=== PATIENT | female | born 2005 | race Caucasian/White ===

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

== ENCOUNTER 2024-11-25 13:06 | Emergency (ER) | payer OTHER, MEDICAID, SELFPAY ==
[2024-11-25 13:15] VITALS: BP 134/64; PULSE 80; RESP 18; TEMP 36.7; O2SAT 100
--- NOTE | 2024-11-25 13:20 | ED.FEMALEGU ---
HPI - Female Genitourinary General Chief complaint: Urogenital-Female Stated complaint: Vaginal Issue History of Present Illness HPI Narrative: patient is a 19-year-old female, without significant past medical history, 1 month status post elective , presents to Express Care with vaginal itching for the past 2 days. She states that she has had a creamy white discharge that is scant amount and had vaginal itching externally. She states when she urinates the vaginal area itches and feels uncomfortable but she has no dysuria, frequency, urgency or odor. She has no pelvic pain. She did have lochial bleeding that ended 2 weeks ago. She has no new sexual partners or concern for STI. She used a 1 day [id number] Monistat treatment yesterday without much relief, prompting her visit. She denies any additional associated symptoms modifying factors. Related Data Home Medications ?Medication ?Instructions ?Recorded ?Confirmed ?Last Taken ?Type norgestimate 0.25 mg-ethinyl See Rx Instructions .Route .COMPLEX 12/27/22 12/27/22 Unknown History estradiol 0.035 mg tablet (Sprintec (28)) iron 11/25/24 Unknown History Allergies Allergy/AdvReac Type Severity Reaction Status Date / Time amoxicillin Allergy Intermediate Rash Verified 11/25/24 13:19 Penicillins Allergy Intermediate Rash Verified 11/25/24 13:19 Review of Systems Genitourinary: Comments: refer to [facility] Past Medical History Medical History No pertinent past medical history Exam Const: General: healthy appearing Nutritional Appearance: well nourished Orientation/consciousness: patient oriented x3 Limitations: no limitations HENMT: Head: normal to inspection Ears: external ears normal Face/Nose/Sinus: Normal external nose present Face and sinus: normal facial exam Mouth: Yes Normal oral and palatal mucosa present Teeth and gingiva: dentition normal Eyes: Conjunctivae: conjunctivae normal Pupils: Equal, round and reactive pupils present EOM: EOMs intact bilaterally Direct Ophthalmoscopy: no photophobia Neck: Neck: normal visual inspection Resp: Effort & Inspection: normal respiratory effort Auscultation: clear to auscultation bilaterally Cardio: Rate: regular rate Rhythm: regular rhythm GI: GI Palp: Yes Soft to palpation Other: Nontender, nondistended, no HSM, no CVA tenderness to percussion Skin: General skin exam: normal color Rashes: no rashes Wounds: no wounds Neuro: General: patient oriented x3, moves all extremities, no meningeal signs, no focal motor deficits and CN's II-XI intact bilaterally Course Course Emergency Course: GC chlamydia Trichomonas are sent on patient's urine. She has low concern for STI. HPI consistent with vaginitis, likely candidal. Will treat with Diflucan, cultures pending. She plans to follow-up with her folding machine tender next week if her symptoms not resolving, sooner if symptoms worsen. She has no pelvic pain or dysuria. will defer pelvic exam at this time patient's request. Level of Care: Express Care Visit ([id number]) Vital Signs Vital signs: Vital Signs Temperature 36.7 C 11/25/24 13:15 Pulse Rate 80 11/25/24 13:15 Respiratory Rate 18 11/25/24 13:15 Blood Pressure 134/64 11/25/24 13:15 Pulse Oximetry 100 11/25/24 13:15 Oxygen Delivery Room Air 11/25/24 13:15 Temperature 36.7 C 11/25/24 13:15 Pulse Rate 80 11/25/24 13:15 Respiratory Rate 18 11/25/24 13:15 Blood Pressure 134/64 11/25/24 13:15 Pulse Oximetry 100 11/25/24 13:15 Oxygen Delivery Room Air 11/25/24 13:15 MDM - Female Genitourinary MDM Narrative Medical decision making narrative: Diflucan 1 tablet Q 72 hours x2 doses, OBGYN follow-up stressed. GC trich culture sent Differential Diagnosis Differential diagnosis: Likely urinary tract infection, bacterial vaginosis, trichomoniasis and vaginitis Discharge Plan Discharge Clinical Impression: Vaginitis Qualifiers: Chronicity: acute Qualified Code(s): N76.0 - Acute vaginitis Patient Disposition: Home Condition: Stable Instructions: Antibiotic Form, Yeast Infection (ED) Additional Instructions: COMPLETE DIFLUCAN PRESCRIBED. FOLLOW-UP CLOSELY WITH YOUR HAIR AND MAKEUP DESIGNER IF YOUR SYMPTOMS NOT RESOLVING. WE WILL CALL YOU IN 3 DAYS IF YOUR CULTURE RETURNS ABNORMALLY. WE WILL NOT CALL YOU UNLESS YOU REQUIRE TREATMENT (NO NEWS IS GOOD NEWS) Patient Language: Thai Prescriptions: New fluconazole 150 mg tablet 150 mg PO Q3D Qty: 2 0RF No Action iron norgestimate-ethinyl estradiol [Sprintec (28)] 0.25-35 mg-mcg tablet See Rx Instructions .ROUTE .COMPLEX Rx Instructions: as prescribed Follow-up/Referrals: PHYSICIAN,DIESEL RETROFIT INSTALLER [Primary Care Provider] - Time of Disposition: 13:35
--- OUTSIDE RECORDS SUMMARY | 2024-11-25 14:42 | XMS_ITS | Clinical Summary ---
Author Organization [address] Address [address] [place] [id number] Care Team Providers Care Continuous Towel Roller Name Role Phone Miscellaneous, Not In File Unavailable Unava ilable No, Physician Primary Care Provider [phone] Allergies No known active allergies Medications ibuprofen 200 mg tab/cap Take 400 mg by mouth every 4 (four) hours as needed for pain Active naproxen (NAPROSYN) 500 mg tablet Take 1 tablet (500 mg total) by mouth 2 (two) times a day with meals P.r.n. pain. Collaborating physician Evaristo Munoz MD 20 tablet 3 Active cyclobenzaprine (FLEXERIL) 5 mg tablet Take 1 tablet (5 mg total) by mouth 3 (three) times a day as needed (Take as directed to relax muscles) Collaborating physician Evaristo Munoz MD 20 tablet 3 Active nitrofurantoin monohydrate (MACROBID) 100 mg capsule Take 1 capsule (100 mg total) by mouth 2 (two) times a day 10 capsule 4 Active Active Problems Problem Noted Date Diagnosed Date Lumbar strain, initial encounter 04/09/2023 Abdominal pain 07/21/2022 Nausea and vomiting, unspecified vomiting type 1 09/19/2021 Influenza due to influenza virus, type B 017 Overview (11/10/2016): Influenza B Viral upper respiratory tract infection 08/27/19 17 Overview (11/10/2016): Viral upper respiratory tract infection Social History Tobacco Use Types Packs/Day Years Used Date Smoking Tobacco: Never Social Connection and Isolat ion Panel [NHANES] Answer Date Recorded In a typical week, how many times do you talk on the phone with family, friends, or neighbors? More than three times a week 07/20/2022 How often do you get togethe r with friends or relatives? More than three times a week 07/20/2022 How often do you attend chur ch or catholic services? More than 4 times per year 07/20/2022 Do you belong to any clubs o r organizations such as alevism groups, unions, fraternal or athletic groups, or school groups? No 07/20/2022 How often do you attend meet ings of the clubs or organizations you belong to? Never 07/20/2022 Are you , , di vorced, , never , or living with a partner? Never 07/20/2022 Overall Financial Resource Strain (CARDIA) Answe r Date Recorded How hard is it for you to pa y for the very basics like food, housing, medical care, and heating? Not hard at all 07/20/2022 PRAPARE - Transportation Answer Date Re corded In the past 12 months, has l ack of transportation kept you from medical appointments or from getting medications? No 07/06 In the past 12 months, has l ack of transportation kept you from meetings, work, or from getting things needed for daily living? No 07/20/2022 Personal Safety Answer Date Recorded Have you ever been in or are you currently in a harmful physical or emotional relationship or is someone making you feel afraid or unsafe? Denies 02/21/2024 Comments No Sex and Gender Information Value Date Recorded Sex Assigned at Not on file Legal Sex Female 7:29 PM REAL TIME ANALYST Gender Identity Not on file Sexual Orientation Not on file Obstetrics History Last Filed Vital Signs Vital Sign Reading Time Taken Comments Blood Pressure 106/59 02/21/2024 12:30 PM CDT Pulse 49 02/21/2024 12:45 PM CDT Temperature 36.6 C (97.8 F) 02/21/2024 12:45 PM CDT Respiratory Rate 18 02/21/2024 12:30 PM CDT Oxygen Saturation 98% 02/21/2024 12:45 PM CDT Inhaled Oxygen Concentration - - Weight 70.3 kg (155 lb) 02/21/2024 10:15 AM CDT Height 157.5 cm (5' 2 ) 02/21/2024 10:15 AM CDT Body Mass Index 28.35 02/21/2024 10:15 AM CDT Plan of Treatment Health Maintenance Due Date Last Done Comments Cervical Cancer Screening 2003 Depression Screening 2003 Regular Well Visit/Exam 18-64 2021 Influenza Vaccine (#1) 2024 08/30/2020, 2013 DTaP/Tdap/Td Vaccine (7 - Td or Tdap) 04/27/2025 04/27/2015, 12/04/2008, 07/14/2004, Additional history exists Hepatitis B Screening Completed 07/14/2004 , 07/14/2004, 2003, Additional history exists Pneumococcal vaccine <65 Completed 004, 2003, 2003 Varicella Vaccines Completed 12/04/2008, 07/14/2004 HPV Vaccines Completed 01/28/2019, 01/02/2018 Meningococcal Vaccine Completed 08/30/2020, 015 Meningococcal B Vaccine Completed 10/06/2020, 08/30 Hepatitis C Screening Completed 07/19/2022 Procedures Procedure Name Priority Date/Time Associated Diagnosis Comments HEPATITIS PANEL, ACUTE STAT 07/19/2022 5:39 AM REAL TIME ANALYST from Last 3 Months or Most Recently Relevant to Health Maintenance Results * Hepatitis panel, acute (07/19/2022 5:39 AM REAL TIME ANALYST) Hep A IgM Nonreactive Nonreactive [facility] Comment: Interpretive Data: If Hep A IgM Ab is reported as Equivocal, a new sample should be drawn in two weeks for testing. Current interpretive data was last revised on 19. Hep B core IgM Nonreactive Nonreactive [facility] Comment: Interpretive Data If HepB Core IgM Ab is reported as Equivocal, a new sample should be drawn in two weeks for testing. Current interpretive data was last revised on 19. Hep C Ab Nonreactive Nonreactive [facility] Comment: Interpretive Data Nonreactive: Antibodies to HCV not detected. Does NOT exclude the possibility of recent exposure to HCV. Equivocal: Equivocal for HCV antibodies. Supplemental molecular testing will be automatically performed to determine infection status in accordance with current CDC screening recommendations. Reactive: Positive for HCV antibodies. This may represent current or past HCV infection. Supplemental molecular testing will be automatically performed to determine current infection status in accordance with current CDC screening recommendations. Interpretive data was last revised on 2019. HepBsAg Nonreactive Nonreactive [facility] Blood 07/19/2022 5:39 AM REAL TIME ANALYST 07/19/2022 5:39 AM REAL TIME ANALYST Evaristo GARCIA [facility] MICROBIOLOGY - GENERAL ORDERABLES Final Result [facility] [id number] Department of Laboratories [place], [place] [id number] from Last 3 Months or Most Recently Relevant to Health Maintenance Insurance [employer] [facility] [place] [address] [address] [facility] Advance Directives For more information, please contact: [phone] * Full Code (Latest Code Status on File) Date Activated Date Inactivated Comments 07/19/2022 11:54 AM 07/24/2022 7:57 PM Care Teams Continuous Towel Roller Relationship Specialty Start Date End Date No, Physician PCP - General 04/09/23 Miscellaneous, Not In File 07/24/22
--- OUTSIDE RECORDS SUMMARY | 2024-11-25 14:42 | XMS_ITS | Clinical Summary ---
Author Organization [facility] Address [address] [place] [address] Care Team Providers Care Chemist Biological Name Role Phone Unavailable Primary Care Provider Unavailabl e Source Comments [facility],non-owned Affiliates and Associated Physician Practices is amultiple site organization consisting of ambulatory clinics and hospital sitesin [place], [place], [place] and [place]. This disclosure is being madepursuant to the Care Everywhere program and may not contain all information available regarding this patient. Last updated 18.[facility] Allergies Active Allergy Reactions Criticality Noted Date Comments Amoxicillin Other 02/21/2024 Abdominal swelling Penicillins Urticaria Medium 05/20/2024 Medications * Be aware that medications may not be up to date on this document. Alwaysverify current medications with the patient. acetaminophen (Tylenol) 500 MG capsule Take 1 (one) capsule by mouth every 6 hours as needed for Pain 12 capsule 02/21/2024 Active ibuprofen (Motrin) 200 MG tablet Take 3 (three) tablets by mouth every 6 hours as needed for Pain 36 tablet 02/21/2024 Active cyclobenzaprine (Flexeril) 10 MG tablet Take 1 (one) tablet by mouth 3 times daily as needed for Muscle Spasms 30 tablet 02/21/2024 Active Social History Tobacco Use Types Packs/Day Years Used Date Smoking Tobacco: Never Assessed Comments Unknown Sex and Gender Information Value Date Recorded Sex Assigned at Not on file Legal Sex Female 3:46 PM CDT Gender Identity Not on file Sexual Orientation Not on file Last Filed Vital Signs Vital Sign Reading Time Taken Comments Blood Pressure 116/69 05/20/2024 5:34 PM CDT Pulse 77 05/20/2024 5:34 PM CDT Temperature 36.7 C (98 F) 05/20/2024 5:34 PM CDT Respiratory Rate 16 05/20/2024 5:34 PM CDT Oxygen Saturation 100% 05/20/2024 5:34 PM CDT Inhaled Oxygen Concentration - - Weight 70.3 kg (155 lb) 02/21/2024 7:21 PM CDT Height 157.5 cm (5' 2 ) 02/21/2024 7:21 PM CDT Body Mass Index 28.35 02/21/2024 7:21 PM CDT Plan of Treatment Health Maintenance Due Date Last Done Comments PAP SMEAR 2003 HIV SCREENING 2018 HPV VACCINE (1 - 3-dose series) 2018 MENINGOCOCCAL (Group B) VACCINE SHARED DECISION-MAKING (1 of 2 - Standard) 2019 DTAP/TDAP/TD VACCINES (1 - Tdap) 2022 HEPATITIS B VACCINE (1 of 3 - 19+ 3-dose series) 2022 CHLAMYDIA/GONORRHEA SCREENING 07/22/2023 07/22/2022, 07/19/2022, 07/13/2022, Additional history exists COVID-19 VACCINE ( - season) 2024 DEPRESSION SCREENING 08/06/2024 INFLUENZA VACCINE (Season Ended) 2025 08/30/2020, 04/24/2014 ZOSTER VACCINE (1 of 2) 2053 HEPATITIS C SCREENING Completed 07/19/2022 HIB VACCINE Aged Out No longer eligi ble based on patient's age to complete this topic MENINGOCOCCAL GROUPS A/C/Y/W VACCINE Aged Out No longer eligible based on patient's age to complete this topic PNEUMOCOCCAL VACCINE Aged Out No long er eligible based on patient's age to complete this topic Insurance MEDICAID [facility]
--- OUTSIDE RECORDS SUMMARY | 2024-11-25 14:42 | XMS_ITS | Data Portability ---
Author Organization [facility] Address [address] [place] [address] Care Team Providers Care Hay Sorter Name Role Phone FUNK, SONDRA Primary Care Provider Assessment No assessment recorded. Plan of Treatment Reminders Order Date Submit Date Provider Last Modified By Organization Details Last Modified Time Details Appointments None record ed. Lab vitami n D, 25-hyd latesha, total, serum 2023 [facility], [address] [place] [address] [address], [place], [address], 4 12:15:44 TSH, ultra- sensit sara, serum 2023 MEHNAZJULES Hood, [address], [address], [place], [address], 4 12:15:43 CMP, serum or plasma 2023 MEHNAZ Hood, [address], [place], [address], 4 03:08:54 lipid panel, serum 2023 MEHNAZ Hood, [address], [address], [place], [address], 4 03:08:53 CBC 2023 MEHNAZ Hood, [address], [address], [place], [address], 4 03:08:56 urinal ysis, dipsti ck 2023 024 [email or web address] In-Office Order, Internal Use Only DO Not Attach Compendium DO Not Attach Compendium, Do Not Delete/merge, [id number] 4 15:37:52 chlamy jose tracho matis + neisse flor gonorr hoeae + tricho monas vagina lis DNA panel, FITZ+pr obe, unspec ified specim en 2022 023 [facility], [address], [address], [place], [address], 3 07:13:15 bacter ial vagino sis panel, vagina l 2022 023 MEHNAZ [facility], [address], [address], [place], [address], 3 07:13:14 candid a paraps ilosis DNA, genita l 2022 023 ME[facility], [address], [address], [place], [address], 3 07:13:13 pregna ncy test, urine 2022 023 [email or web address] In-Office Order, Internal Use Only DO Not Attach Compendium DO Not Attach Compendium, Do Not Delete/merge, [id number] 3 12:38:01 RPR (rapid plasma reagin ), serum 2021 022 MEHNAZ [facility], [address], [place], [address], 2 07:12:35 HIV 1 + 2, meanin gful use set 2021 022 ME[facility], [address], [address], [place], [address], 2 07:12:35 HBsAg (hepat itis B surfac e Ag), EIA, serum 2021 [facility], [address] [facility], [place], [address], 2 07:12:37 HSV 2 IgG Ab, QN, IA, serum 2021 [facility], [address] [facility], [place], [address], 2 07:12:36 hepati tis C Ab, signal -to-cu toff, serum or plasma 2021 [facility], [address] [facility], [facility] 2, [place], [address], 2 07:12:36 chlamy jose tracho matis + neisse flor gonorr hoeae + tricho monas vagina lis DNA panel, FITZ+pr obe, unspec ified specim en 2021 [facility], [address] [facility], [facility] 2, [place], [address], 07:11:34 pregna ncy test, urine 2021 [email or web address] In-Office Order, Internal Use Only DO Not Attach Compendium DO Not Attach Compendium, Do Not Delete/merge, [id number] 2 14:21:59 Referral zia uriarte referr al 2023 024 [email or web address] [facility], [address] [facility], [facility], [place], [address], 4 17:21:10 zia uriarte referr al 2022 023 Jevon Ibarra [facility], 4 [facility] , [address], [place], [address], 4 11:35:33 Procedures None record ed. Surgeries None record ed. Imaging None record ed. Medication Orders tretin oin 0.1 % topica l cream 2023 024 [facility], [address] [place], [address], 4 14:27:18 ibupro fen 600 mg tablet [address] [facility], [address] [place], [place], [id number], 4 14:03:07 flucon azole 150 mg tablet [address] [facility] #37804, [address] [place], [place], [id number], 4 14:03:03 Xulane 150 mcg-35 mcg/24 hr transd ermal patch 2023 024 [facility] [employer] [facility] [place] [place] #[facility], [address] [place], [place], [id number], 4 15:38:00 Sprint ec (28) 0.25 mg-0.0 35 mg tablet 2022 023 [facility], [address] [place], [address], 4 11:58:49 levono rgestr el-eth inyl estrad iol 0.1 mg-20 mcg tablet [address] [facility], [address] [place], [address], 3 14:24:28 levono rgestr el-eth inyl estrad iol 0.1 mg-20 mcg tablet [address] [facility]18, [address] , [place], [place], [id number], 14:24:28 Patient TargetsNo targets recorded. Patient Instructions Encounter Date Encounter Id Patient Instructions Last Modified By Organization Details Last Modified Time 11/14/2021 [id number] combination jo h control pills for teens: care instructions [email or web address] Not available 11/14/2021 12:01:48 A healthy lifestyle: care instructions [email or web address] Not available 11/14/2021 11:58:[address] Vonnie davis Not available 11/21/2021 14:05:52 01/29/2024 [id number] A healthy lifestyle: care instructions Not available 01/29/2024 15:37:50 painful menstrua l cramps: care instructions Not available 01/29/2024 15:37:50 vaginal yeast infection: care instructions [email or web address] Not available 01/29/2024 15:37:50 05/21/2024 [id number] A healthy lifestyle: care instructions Not available 05/21/2024 14:27:10 Wash with mild soap such as Dove or Ivory, pat dry and apply thick lotion such as aquaphor, Eucerin, Cera Ve or pure mercer butter to dry skin. Avoid fragrance or bubble baths. Avoid any possible triggers. Keep skin cool and dry as too much moisture may aggravate skin. Elimination diet may be considered as well as derm referral if rash persists. Go to ER if shortness of breath, throat closing, tongue swelling, drop in blood pressure, nausea or vomiting. Not available 05/21/2024 14:29:01 f/u 6 months [email or web address] Not available 14:29:19 Reason for Referral Counseling Referral for Posi tive screening for depression on PHQ-9 (Patient Health Questionnaire 9) Referring Physician: Shanta Stokes, MARKER [employer]ER, Encounter Date: 08/23/2022 Counseling Referral for Mixe d anxiety and depressive disorder Referring Physician: Sondra Funk, Family Medicine, Encounter Date: 05/21/2024 Results Created Date Observation Date Name Description Value Unit Range Abnormal Flag Note LastModifiedBy Organization Detail LastModifiedTime 11/15/19 22 11/15/2021 RPR, RFX QN RPR/C ONFIR M TP RPR Non Reacti ve non reacti ve Not Available [facility] ([facility]) [address] [facility], [place], [address], 11/15/2021 07:12:34 11/15/19 22 11/15/2021 HIV AB/P2 4 AG WITH REFLE X HIV Ab/P24 Ag screen Non Reacti ve non reacti ve HIV Negat sara HIV-1 /HIV- 2 antib odies and HIV-1 p24 antig en were NOT detec krystle. There is no labor atory evide nce of HIV infec tion. Not Available [facility] ([facility]) [address] [facility], [place], [address], 11/15/2021 07:12:35 11/15/19 22 11/15/2021 HCV ANTIB JACINTO hep C virus Ab <0.1 s/co_ ratio 0.0-0. 9 Negat sara: < 0.8 Indet ermin ate: 0.8 - 0.9 Posit sara: > 0.9 The CDC recom mends that a posit sara HCV antib jacinto resul t be follo wed up with a HCV Nucle ic Acid Ampli ficat ion test (5507 13). Not Available [facility] ([facility]) [address] [facility], [place], [address], 11/15/2021 07:12:36 11/15/19 22 11/15/2021 HSV-2 TYPE SPEC AB, IGG W/RFL X hsv 2 IgG, type spec <0.91 index 0.00-0 .90 Negat sara <0.91 Equiv ocal 0.91 - 1.09 Posit sara >1.09 Note: Negat sara indic ates no HSV-2 antib odies detec krystle. Posit sara indic ates HSV-2 antib odies detec krystle. Equiv ocal and low posit sara HSV-2 scree ns (Inde x 0.91- 5.00) may be false posit sara and are refle xed to suppl ement al testi ng in accor dance with CDC guide lines . Not Available [facility] ([facility]) [address] [facility], [place], [address], 11/15/2021 07:12:36 11/15/19 22 11/15/2021 HBSAG SCREE N HBsAg screen Negati ve negati ve Not Available [facility] ([facility]) [address] [place], [address], 11/15/2021 07:12:37 11/15/19 22 11/16/2021 CT, NG, TRICH VAG BY FITZ chlamydia by FITZ Negati ve negati ve Not Available [facility] ([facility]) [address] [place], [address], 11/16/2021 07:11:34 11/15/19 22 11/16/2021 CT, NG, TRICH VAG BY FITZ gonococcus by FITZ Negati ve negati ve Not Available [facility] ([facility]) [address] [place], [address], 11/16/2021 07:11:34 11/15/19 22 11/16/2021 CT, NG, TRICH VAG BY FITZ trich vag by FITZ Negati ve negati ve Not Available [facility] ([facility]) [address] [place], [address], 11/16/2021 07:11:34 11/15/19 22 11/14/2021 pregn amirah test, urine HCG negati ve Not Available In-Office Order Internal Use Only DO Not Attach Compendium DO Not Attach Compendium, Do Not Delete/merge, [id number] 11/14/2021 11:47:06 08/23/19 23 08/23/2022 pregn amirah test, urine HCG negati ve Not Available In-Office Order Internal Use Only DO Not Attach Compendium DO Not Attach Compendium, Do Not Delete/merge, [id number] 08/23/2022 12:19:51 11/23/19 23 11/23/2022 HCV ANTIB JACINTO hep C virus Ab Non Reacti ve nonrea ctive HCV antib jacinto alone does not diffe renti ate betwe en previ ously resol deepa infec tion and activ e infec tion. Equiv ocal and React sara HCV antib jacinto resul ts shoul d be follo wed up with an HCV RNA test to suppo rt the diagn osis of activ e HCV infec tion. Not Available [facility] ([facility]) [address] [facility], [place], [address], 11/23/2022 11:14:50 11/23/19 23 11/23/2022 HSV-2 TYPE SPEC AB, IGG W/RFL X hsv 2 IgG, type spec <0.91 index 0.00-0 .90 Negat sara <0.91 Equiv ocal 0.91 - 1.09 Posit sara >1.09 Note: Negat sara indic ates no HSV-2 antib odies detec krystle. Posit sara indic ates HSV-2 antib odies detec krystle. Equiv ocal and low posit sara HSV-2 scree ns (Inde x 0.91- 5.00) may be false posit sara and are refle xed to suppl odalis roblero in accor dance with CDC guide lines . Not Available [facility] ([facility]) [address] [facility], [place], [address], 11/23/2022 11:14:51 11/23/19 23 11/23/2022 HBSAG SCREE N HBsAg screen Negati ve negati ve Not Available [facility] ([facility]) [address] [facility], [place], [address], 11/23/2022 11:14:51 11/23/19 23 11/23/2022 RPR, RFX QN RPR/C ONFIR M TP RPR Non Reacti ve nonrea ctive Not Available [facility] ([facility]) [address] [facility], [place], [address], 11/23/2022 11:14:52 11/23/19 23 11/23/2022 HIV AB/P2 4 AG WITH REFLE X HIV Ab/P24 Ag screen Non Reacti ve nonrea ctive HIV Negat sara HIV-1 /HIV- 2 antib odies and HIV-1 p24 antig en were NOT detec krystle. There is no labor atory evide nce of HIV infec tion. Not Available [facility] ([facility]) [address] [facility], [place], [address], 11/23/2022 11:14:53 11/23/19 23 11/24/2022 C ALBIC ANS + C GLABR MICHAEL, FITZ david albicans, FITZ Negati ve negati ve Not Available [facility] ([facility]) [address] [facility], [place], [address], 11/24/2022 07:13:13 11/23/19 23 11/24/2022 C ALBIC ANS + C GLABR MICHAEL, FITZ david glabrata, FITZ Negati ve negati ve Not Available [facility] ([facility]) [address] [facility], [place], [address], 11/24/2022 07:13:13 11/23/19 23 11/24/2022 BACTE RIAL VAGIN OSIS, FITZ atopobium vaginae Low - 0 score Not Available [facility] ([facility]) [address] [place], [address], 11/24/2022 07:13:14 11/23/19 23 11/24/2022 BACTE RIAL VAGIN OSIS, FITZ bvab 2 Low - 0 score Not Available [facility] ([facility]) [address] [place], [address], 11/24/2022 07:13:14 11/23/19 23 11/24/2022 BACTE RIAL VAGIN OSIS, FITZ megasphaera 1 Low - 0 score Calcu late total score by alex paulino the 3 indiv idual bacte rial vagin osis (BV) marke r score s toget her. Total score is inter prete d as follo ws: Total score 0-1: Indic ates the absen ce of BV. Total score 2: Indet ermin ate for BV. Addit ional clini leah data shoul d be evalu ated to estab kiera a diagn osis. Total score 3-6: Indic ates the prese nce of BV. This test was devel oped and its perfo rmanc e derrick cteri stics deter mined by [facility]. It has not been clear ed or appro deepa by the Food and Drug Admin istra tion. Not Available [facility] ([facility]) [address] [place], [address], 11/24/2022 07:13:14 11/23/19 23 11/24/2022 CT, NG, TRICH VAG BY FITZ chlamydia by FITZ Negati ve negati ve Not Available [facility] ([facility]) [address] [place], [address], 11/24/2022 07:13:15 11/23/19 23 11/24/2022 CT, NG, TRICH VAG BY FITZ gonococcus by FITZ Negati ve negati ve Not Available [facility] ([facility]) [address] [place], [address], 11/24/2022 07:13:15 11/23/19 23 11/24/2022 CT, NG, TRICH VAG BY FITZ trich vag by FITZ Negati ve negati ve Not Available [facility] ([facility]) [address] [place], [address], 11/24/2022 07:13:15 01/29/20 24 01/29/2024 urina lysis , dipst ick Leukocytes Trace Not Available In-Offi ce Order Internal Use Only DO Not Attach Compendium DO Not Attach Compendium, Do Not Delete/merge, [id number] 01/29/2024 12:27:04 01/29/20 24 01/29/2024 urina lysis , dipst ick Nitrite negati ve Not Available In-Office Order Internal Use Only DO Not Attach Compendium DO Not Attach Compendium, Do Not Delete/merge, 01/29/2024 12:27:04 01/29/20 24 01/29/2024 urina lysis , dipst ick Urobilinogen 1 Not Available In-Of fice Order Internal Use Only DO Not Attach Compendium DO Not Attach Compendium, Do Not Delete/merge, 01/29/2024 12:27:04 01/29/20 24 01/29/2024 urina lysis , dipst ick Protein 300 Not Available In-Office Order Internal Use Only DO Not Attach Compendium DO Not Attach Compendium, Do Not Delete/merge, 01/29/2024 12:27:04 01/29/20 24 01/29/2024 urina lysis , dipst ick pH 6.0 Not Available In-Office Order Internal Use Only DO Not Attach Compendium DO Not Attach Compendium, Do Not Delete/merge, 01/29/2024 12:27:04 01/29/20 24 01/29/2024 urina lysis , dipst ick Blood Large Not Available In-Office Order Internal Use Only DO Not Attach Compendium DO Not Attach Compendium, Do Not Delete/merge, 01/29/2024 12:27:04 01/29/20 24 01/29/2024 urina lysis , dipst ick Specific [place] 1.030 Not Available In-Off ice Order Internal Use Only DO Not Attach Compendium DO Not Attach Compendium, Do Not Delete/merge, 01/29/2024 12:27:04 01/29/20 24 01/29/2024 urina lysis , dipst ick Ketone Negati ve Not Available In-Office Order Internal Use Only DO Not Attach Compendium DO Not Attach Compendium, Do Not Delete/merge, 01/29/2024 12:27:04 01/29/20 24 01/29/2024 urina lysis , dipst ick Bilirubin Small Not Available In-Offic e Order Internal Use Only DO Not Attach Compendium DO Not Attach Compendium, Do Not Delete/merge, [id number] 01/29/2024 12:27:04 01/29/20 24 01/29/2024 urina lysis , dipst ick Glucose Negati ve Not Available In-Office Order Internal Use Only DO Not Attach Compendium DO Not Attach Compendium, Do Not Delete/merge, [id number] 01/29/2024 12:27:04 01/29/20 24 01/29/2024 urina lysis , dipst ick Appearance Cloudy Not Available In-Offi ce Order Internal Use Only DO Not Attach Compendium DO Not Attach Compendium, Do Not Delete/merge, [id number] 01/29/2024 12:27:04 01/29/20 24 01/29/2024 urina lysis , dipst ick Color Dark Yellow Not Available In-Office Order Internal Use Only DO Not Attach Compendium DO Not Attach Compendium, Do Not Delete/merge, [id number] 01/29/2024 12:27:04 05/21/20 24 05/21/2024 LIPID PANEL cholesterol, total 196 mg/dL 100-19 9 Not Available [facility] [address] [place], [address], 05/22/2024 03:08:53 05/21/2005/21/2024 LIPID PANEL triglyceride s 129 mg/dL 0-149 Not Available [facility] [address] [place], [address], 05/22/2024 03:08:53 05/21/20 24 05/21/2024 LIPID PANEL HDL cholesterol 49 mg/dL 40-999 Not Available [facility] [address] [place], [address], 05/22/2024 03:08:53 05/21/2005/21/2024 LIPID PANEL VLDL cholesterol leah 26 mg/dL 5-40 Not Available [facility] [address] [place], [address], 05/22/2024 03:08:53 05/21/20 24 05/21/2024 LIPID PANEL LDL chol calc (nih) 140 mg/dL 0-99 above high normal Not Available [facility] [address] [place], [address], 05/22/2024 03:08:53 05/21/2005/21/2024 COMP. METAB OLIC PANEL (14) glucose 78 mg/dL 70-99 Not Available [facility] [address] [place], [address], 05/22/2024 03:08:54 05/21/2005/21/2024 COMP. METAB OLIC PANEL (14) BUN 10 mg/dL 6-20 Not Available [facility] [address] [place], [address], 05/22/2024 03:08:54 05/21/20 24 05/21/2024 COMP. METAB OLIC PANEL (14) creatinine 0.66 mg/dL 0.76-1 .27 below low normal Not Available [facility] [address] [place], [address], 05/22/2024 03:08:54 05/21/2005/21/2024 COMP. METAB OLIC PANEL (14) eGFR 129 >=60 Units for eGFR value s are mL/mi n/1.7 3 The eGFR Calcu latio n has not been valid ated for patie nts under the age of 18. If test resul ts are displ ayed for a patie nt under the age of 18, disre abdulaziz that value . Not Available [facility] [address] [place], [address], 05/22/2024 03:08:54 05/21/20 24 05/21/2024 COMP. METAB OLIC PANEL (14) BUN/creatini ne ratio 15 9-23 Not Available [facility] [address] [place], [address], 05/22/2024 03:08:54 05/21/20 24 05/21/2024 COMP. METAB OLIC PANEL (14) sodium 143 mmol/ L 134-14 4 Not Available [facility] [address] [place] [address], [address], 05/22/2024 03:08:54 05/21/20 24 05/21/2024 COMP. METAB OLIC PANEL (14) potassium 4.4 mmol/ L 3.5-5. 2 Not Available [facility] [address] [place], [address], 05/22/2024 03:08:54 05/21/2005/21/2024 COMP. METAB OLIC PANEL (14) chloride 105 mmol/ L 96-106 Not Available [facility] [address] [place] [address], [address], 05/22/2024 03:08:54 05/21/2005/21/2024 COMP. METAB OLIC PANEL (14) carbon dioxide, total 28 mmol/ L 20-29 Not Available [facility] [address] [place] [address], [address], 05/22/2024 03:08:54 05/21/2005/21/2024 COMP. METAB OLIC PANEL (14) calcium 9.6 mg/dL 8.7-10 .2 Not Available [facility] [address] [place] [address], [address], 05/22/2024 03:08:54 05/21/2005/21/2024 COMP. METAB OLIC PANEL (14) protein, total 7.3 g/dL 6.0-8. 5 Not Available [facility] [address] [place], [address], 05/22/2024 03:08:54 05/21/20 24 05/21/2024 COMP. METAB OLIC PANEL (14) albumin 4.2 g/dL 4.0-5. 0 Not Available [facility] [address] [place] [address], [address], 05/22/2024 03:08:54 05/21/20 24 05/21/2024 COMP. METAB OLIC PANEL (14) globulin, total 3.1 g/dL 1.5-4. 5 Not Available [facility] [address] [place] [address], [address], 05/22/2024 03:08:54 05/21/20 24 05/21/2024 COMP. METAB OLIC PANEL (14) A/G ratio 1.0 1.2-2. 2 below low normal Not Available [facility] [address] [place] [address], [address], 05/22/2024 03:08:54 05/21/20 24 05/21/2024 COMP. METAB OLIC PANEL (14) bilirubin, total 0.3 mg/dL 0.0-1. 2 Not Available [facility] [address] [place] [address], [address], 05/22/2024 03:08:54 05/21/20 24 05/21/2024 COMP. METAB OLIC PANEL (14) alkaline phosphatase 84 IU/L 44-121 Not Available [facility] [address] [place] [address], [address], 05/22/2024 03:08:54 05/21/20 24 05/21/2024 COMP. METAB OLIC PANEL (14) AST (SGOT) 12 IU/L 0-40 Not Available [facility] Department [address] [place] [address], [address], 05/22/2024 03:08:54 05/21/20 24 05/21/2024 COMP. METAB OLIC PANEL (14) ALT (SGPT) 7 IU/L 0-32 Not Available [facility] [address] [place] [address], [address], 05/22/2024 03:08:54 05/21/20 24 05/21/2024 CBC, PLATE LET, NO DIFFE RENTI AL WBC 5.4 x10e3 /uL 3.4-10 .8 Not Available [facility] [address] [place], [address], 05/22/2024 03:08:56 05/21/2005/21/2024 CBC, PLATE LET, NO DIFFE RENTI AL RBC 3.41 x10e6 /uL 3.77-5 .28 below low normal Not Available [facility] [address] [place], [address], 05/22/2024 03:08:56 05/21/2005/21/2024 CBC, PLATE LET, NO DIFFE RENTI AL hemoglobin 9.3 g/dL 11.1-1 5.9 below low normal Not Available [facility] [address] [place], [address], 05/22/2024 03:08:56 05/21/2005/21/2024 CBC, PLATE LET, NO DIFFE RENTI AL hematocrit 30.6 % 34.0-4 6.6 below low normal Not Available [facility] [address] [place], [address], 05/22/2024 03:08:56 05/21/2005/21/2024 CBC, PLATE LET, NO DIFFE RENTI AL MCV 90 fL 79-97 Not Available [facility] [address] [place], [address], 05/22/2024 03:08:56 05/21/2005/21/2024 CBC, PLATE LET, NO DIFFE RENTI AL MCH 27.3 pg 26.6-3 3.0 Not Available [facility] [address] [place], [address], 05/22/2024 03:08:56 05/21/2005/21/2024 CBC, PLATE LET, NO DIFFE RENTI AL MCHC 30.4 g/dL 31.5-3 5.7 below low normal Not Available [facility] [address] [place], [address], 05/22/2024 03:08:56 05/21/2005/21/2024 CBC, PLATE LET, NO DIFFE RENTI AL RDW 14.9 % 11.5-1 4.5 above high normal Not Available [facility] [address] [place], [address], 05/22/2024 03:08:56 05/21/2005/21/2024 CBC, PLATE LET, NO DIFFE RENTI AL platelets 289 x10e3 /uL 150-45 0 Mean Plate let Volum e 10.8 fL 8.9-1 2.7 N Not Available [facility] [address] [place], [address], 05/22/2024 03:08:56 05/21/2005/21/2024 CBC, PLATE LET, NO DIFFE RENTI AL NRBC 0 % 0-0 Not Available [facility] [address] [place], [address], 05/22/2024 03:08:56 05/21/2005/22/2024 TSH RFX ON ABNOR MAL TO FREE T4 TSH 2.150 uIU/m L 0.450- 4.500 Not Available [facility] ([facility]) [address] [facility], [place], [address], 05/22/2024 12:15:42 05/21/2005/22/2024 VITAM IN D, 25-HY DROXY vitamin D, 25-hydroxy 31.1 NG/mL 30.0-1 00.0 Vitam in D defic iency has been defin ed by the Insti tute of Medic ine and an Endoc ck [place] pract ice guide line as a level of serum 25-OH vitam in D less than 20 ng/mL (1,2) . The Endoc ck [place] went on to [facility] er defin e vitam in D insuf ficie ncy as a level betwe en 21 and 29 ng/mL (2). 1. IOM (Inst itute of Medic ine). 2010. Melanie ry refer dmitriye maribell es for calci um and D. Josh baxter [place]: The Nat [facility] . 2. Holic k MF, Binkl ey [place], Bisch off-F errar i MCDONALD, et al. Evalu ation , treat ment, and preve ntion of vitam in D defic iency : an Endoc rine Socie ty clini leah pract ice guide line. JCEM. 2010; 96(7) :1911 -30. Not Available [facility] ([facility]) [address] [facility], [place], [address], 05/22/2024 12:15:44 Result Notes None recorded. Problems Name Problem SNOMED Code Status Onset Date Resolution Date Notes Provider Name and Address Organization Details Recorded Time Mixed anxiety and depressive disorder 205468849 Active 2023 Sondra Funk APN, MICHAEL Attn: Accountin g,[address] [facility] [address], [place], [address], [place] [facility] 4 14:21:29 Inflammatory acne 680008154 Active 2023 Sondra Funk APN, SHAUN-C Attn: Accountin g,[address] [place], [address], [place] [facility] 4 14:26:29 Problem Notes None recorded. Medical Equipment None Reported. Allergies Allergen ID Allergen Name Allergen Category Reaction Reaction Severity Criticality Documentation Date Start Date Code Code System Note Provider Name and Address Organization Details Recorded Time 668770 amoxicill in medicatio n vomiting severe Not available 08/23/2022 723 RxNorm Not Available Not Available Not Available 785054 Product containin g penicilli n (product) medicatio n fever severe Not available 08/23/2022 14433 8001 SNOMED Not Available Not Available Not Available Medications Name Sig Start Date Stop Date Status Note LastModified by Organization Details LastModified Time cyclobenzap rine 10 mg tablet TAKE 1 TABLET BY MOUTH THREE TIMES DAILY NEEDED FOR MUSCLE SPASMS 05/21 completed Not Available Not Available Not Available tretinoin 0.1 % topical cream APPLY TOPICALLY TO AFFECTED AREAS ONCE DAILY AT BEDTIME active Not Available Not Available No t Available amoxicillin 500 mg capsule TAKE 1 CAPSULE BY MOUTH TWICE DAILY FOR 10 DAYS 08/23 completed Not Available Not Available Not Available Aviane 0.1 mg-20 mcg tablet TAKE 1 TABLET BY MOUTH ONCE DAILY 11/22 completed Not Available Not Available Not Available prednisone 10 mg tablet 08/23 completed Not Available Not Available Not Available azithromyci n 250 mg tablet TAKE 2 TABLETS BY MOUTH ON DAY 1, AND THEN TAKE 1 TABLET BY MOUTH ONCE A DAY ON DAY 2 THROUGH DAY 5 01/28 completed Not Available Not Available Not Available ibuprofen 800 mg tablet Take 1 tablet every 8 hours by oral route as needed. 11/14 completed Not Available Not Available Not Available fluconazole 150 mg tablet TAKE 1 TABLET BY MOUTH EVERY 72 HOURS. TAKE ONE TABLET TODAY THEN REPEAT DOSE AGAIN 02/02/2405/21 completed Not Available Not Available Not Available hydrocodone 5 mg-acetamin ophen 325 mg tablet TAKE 1 TABLET BY MOUTH EVERY 6 HOURS NEEDED FOR MODERATE TO SEVERE PAIN 12/29 completed Not Available Not Available Not Available ondansetron HCl 4 mg tablet TAKE 1 ORAL TABLET EVERY UP TO EVERY 8 HOURS NEEDED FOR NAUSEA OR VOMITING. 01/28 completed Not Available Not Available Not Available benzoyl peroxide 5 % topical gel APPLY EXTERNALL Y TO THE AFFECTED AREA TWICE DAILY 08/23 completed Not Available Not Available Not Available clindamycin 1 % topical gel APPLY EXTERNALL Y TO THE AFFECTED AREA TWICE DAILY 10/31 completed Not Available Not Available Not Available ferrous sulfate 325 mg (65 mg iron) tablet Take 1 tablet every day by oral route. 2023 active Not Available Not Available Not Avai lable promethazin e 25 mg tablet TAKE 1 TABLET BY MOUTH EVERY 4-6 HOURS NEEDED NAUSEA active Not Available Not Available No t Available ibuprofen 600 mg tablet TAKE 1 TABLET BY MOUTH EVERY 6 HOURS NEEDED FOR PAIN active Not Available Not Available No t Available medroxyprog esterone 150 mg/mL intramuscul ar suspension Inject 1 mL every 3 months by intramusc ular route. 11/14 completed Not Available Not Available Not Available naproxen 500 mg tablet TAKE 1 TABLET BY MOUTH TWICE DAILY WITH MEALS NEEDED FOR PAIN 01/28 completed Not Available Not Available Not Available medroxyprog esterone 150 mg/mL intramuscul ar syringe Inject 1 mL every 3 months by intramusc ular route. 11/14 completed Not Available Not Available Not Available cyclobenzap rine 5 mg tablet TAKE 1 TABLET BY MOUTH THREE TIMES DAILY NEEDED 01/28 completed Not Available Not Available Not Available nitrofurant oin monohydrate /macrocryst als 100 mg capsule TAKE 1 CAPSULE BY MOUTH TWICE DAILY 05/21 completed Not Available Not Available Not Available Estarylla 0.25 mg-0.035 mg tablet TAKE 1 TABLET BY MOUTH EVERY DAY active Not Available Not Available No t Available Zafemy 150 mcg-35 mcg/24 hr transdermal patch APPLY 1 PATCH TOPICALLY ONCE A WEEK FOR 3 WEEKS, OFF 1 WEEK active Not Available Not Available No t Available Vitals Date Recorded Body height Body mass index (BMI) Body mass index (BMI) Percentile per age and sex Body weight Systolic blood pressure Diastolic blood pressure Provider Name and Address Organization Details Last Updated DateTime 2 157.48 cm 31.8 kg/m2 96 % 05942.0 7 g 104 mm[Hg] 70 mm[Hg] Dejah Crowe [place] [facility] 2 11:45:39 Date Recorded Body height Provider Name an d Address Organization Details Last Updated DateTime 08/23/2022 157.48 cm Dejah Crowe [place] [facility] 2022 12:04:28 Date Recorded Body mass index (BMI) Percentile per age and sex Body mass index (BMI) Body weight Systolic blood pressure Diastolic blood pressure Provider Name and Address Organization Details Last Updated DateTime 08/23/2022 93 % 29.1 kg/m2 00016.4 7 g 110 mm[Hg] 76 mm[Hg] Roxana cleaning [place] - [facility] 3 12:15:52 Date Recorded Body height Body mass index (BMI) Percentile per age and sex Body mass index (BMI) Body weight Systolic blood pressure Diastolic blood pressure Provider Name and Address Organization Details Last Updated DateTime 3 157.48 cm 92 % 28.7 kg/m2 39868.2 9 g 123 mm[Hg] 84 mm[Hg] GEE Haley [facility] 3 14:09:44 Date Recorded Body height Body mass index (BMI) Body mass index (BMI) Percentile per age and sex Body weight Systolic blood pressure Diastolic blood pressure Provider Name and Address Organization Details Last Updated DateTime 4 157.48 cm 28.4 kg/m2 90 % 89529.2 5 g 140 mm[Hg] 75 mm[Hg] Amelia Moon MA [facility] 4 11:58:04 Date Recorded Systolic blood pressure Diastolic blood pressure Provider Name and Address Organization Details Last Updated DateTime 01/29/2024 102 mm[Hg] 62 mm[Hg] Roxana Mo MA [facility] 01/29/2024 12:39:41 Date Recorded Body height Body mass index (BMI) Body mass index (BMI) Percentile per age and sex Body weight Oxygen saturation Oxygen saturation in Arterial blood by Pulse oximetry Heart rate Respiratory rate Body temperature Systolic blood pressure Diastolic blood pressure Provider Name and Address Organization Details Last Updated DateTime 4 157.48 cm 29.3 kg/m2 91 % 51988.8 6 g 99 % 99 % 85 /min 16 /min 98 [degF] 96 mm[Hg] 62 mm[Hg] Samantha Beth MA [facility] 4 14:14:19 Social History Question Answer Notes LastModified by Organizat ion Details LastModified Time Tobacco Smoking Status Never Smoker MOE Cesar, [facility] 01/02/2018 09:55:11 Do You Have An Advance Directive? No Information not available 01/29/2024 What Is Your Level Of Alcohol Consumption? None Information not available 12/29/2020 Animal Exposure? Yes [email or web address] Informa tion not available 01/02/2018 Do You Wear A Helmet When Biking? No [email or web address] Information not available 01/02/2018 Are You Blind Or Do You Have Difficulty Seeing? No Information not available 05/21/2024 Is Blood Transfusion Acceptable In An Emergency? Yes Information not available 01/29/2024 Are You Or Have You Been Involved With Bullying? No [email or web address] Information not available 01/02/2018 What Is Your Level Of Caffeine Consumption? Moderate Coffee, Soda Information not available 05/21/2024 What Type Of Manager Digital Do You Use? None [email or web address] Information not available 12/13/2020 In The 14 Days Before Symptom Onset, Have You Had Close Contact With A Laboratory-confi rmed COVID-19 While That Case Was Ill? No Information not available 01/29/2024 In The 14 Days Before Symptom Onset, Have You Had Close Contact With A Person Who Is Under Investigation For COVID-19 While That Person Was Ill? No Information not available 01/29/2024 Have You Been To An Area Known To Be High Risk For COVID-19? No Information not available 01/29/2024 Are You Currently Employed? Yes Information not available 05/21/2024 Are You Deaf Or Do You Have Serious Difficulty Hearing? No Information not available 05/21/2024 What Type Of Diet Are You Following? REGULAR Picky [email or web address] Information not available 01/02/2018 Do You Or Have You Ever Used E-cigarettes Or Vape? Current User Of Electronic Cigarettes 5% Nicotine , Started At Age 16 Information not available 05/21/2024 What Is The Highest Grade Or Level Of School You Have Completed Or The Highest Degree You Have Received? [id number] [email or web address] Information not available 12/13/2020 What Is Your Occupation? [employer] Information not available 05/21/2024 Have There Been Any Changes To Your Family Or Social Situation? No Information not available 01/29/2024 Are There Any Guns Present In Your Home? No [email or web address] Information not available 01/02/2018 What Is Your Home Situation? Father Dad, Brother [email or web address] Information not available 01/02/2018 Do You Use Insect Repellent Routinely? Yes [email or web address] Information not available 01/02/2018 Car Seat Type Or Seat Belt? Seat Belt [email or web address] Information not available 01/02/2018 Parent Involvement? Mom Not Involved [email or web address] Information not available 01/02/2018 Riding In Car Front Seat? Yes [email or web address] Information not available 01/02/2018 What Was The Date Of Your Most Recent Tobacco Screening? 05/21/2024 Information not available 05/21/2024 How Many Children Do You Have? 0 Information not available 01/29/2024 What Is Your Parents' Marital Status? Unmarried [email or web address] Information not available 01/02/2018 Do You Have Any Pets? No Information not available 01/29/2024 Pool Exposure No [email or web address] Informatio n not available 01/02/2018 Do You Use Protection During Sex? No Information not available 01/29/2024 What Is Your Relationship Status? Single Information not available 01/29/2024 What Is The Name Of Your School? [employer] [id number] [email or web address] Information not available 08/30/2020 Do You Use Your Seat Belt Or Car Seat Routinely? Yes Information not available 01/29/2024 Are You Sexually Active? Yes Information not available 01/29/2024 Do You Have Any Siblings? 3 1/2 Brother, 1 1/2 Sister 2 Brothers On Dad Side, Sister And Brother On Mom Side [email or web address] Information not available 01/02/2018 Do You Have Smoke And Carbon Monoxide Detectors In Your Home? Yes [email or web address] Information not available 01/02/2018 Are You Passively Exposed To Smoke? Yes Dad Smokes [email or web address] Information not available 01/02/2018 Do You Or Have You Ever Used Smokeless Tobacco? Never Used Smokeless Tobacco Information not available 05/21/2024 What Types Of Sporting Activities Do You Participate In? Soccer, Basketball [email or web address] Information not available 01/28/2019 Do You Feel Stressed (tense, Restless, Nervous, Or Anxious, Or Unable To Sleep At Night)? [id number] Anxiety Information not available 05/21/2024 Do You Use Any Illicit Or Recreational Drugs? Yes Marijuana Information not available 05/21/2024 Do You Use Sunscreen Routinely? Yes [email or web address] Information not available 01/02/2018 Has Tobacco Cessation Counseling Been Provided? Yes Information not available 11/14/2021 On What Date Was Tobacco Cessation Counseling Provided? 05/21/2024 Information not available 05/21/2024 Year In School 11 shay [email or web address] not available 08/30/2020 Do You Or Have You Ever Used Any Other Forms Of Tobacco Or Nicotine? Yes Information not available 05/21/2024 Sex: Female Functional Status Question Answer Note LastModified by Organizat ion Details LastModified Time Are you able to care for yourself? Yes Information not available 05/21/2024 What is your exercise level? Occasional Information not available 05/21/2024 Mental Status None recorded. Family History Relationship Description Onset Age of this Age Resolved Age Notes LastModified by Organization Details LastModified Time Father No current problems or disability [email or web address] Not available 09:54:47 Mother No current problems or disability [email or web address] Not available 09:54:47 Paternal Aunt Diabetes mellitus Great aunt [email or web address] Not available 01/29/2024 12:00:27 Medical History Condition Response Blood Diseases N Ear or Hearing Problems N Thyroid Problems N Depression Y Developmental or Behavioral Disorders N Skin Problems N Premature N Anemia N Constipation N Diabetes N Anxiety Disorder N Muscle, Joint, or Bone Problems N Bedwetting N Vision or Eye Problems N Heart Problems/Murmur N Seizures/Epilepsy N Head Injury/Concussion N Cancer N Asthma N Allergies N ADHD N Bladder or Kidney Problems N Headaches N Chicken Pox N Autism Spectrum Disorder (ASD) N Gynecological History Statement/Question Response Flow Heavy Date of LMP 05/11/2024 STIs/STDs N HPV Vaccine Y Duration of Flow (days) 7 Age at Menarche 11 Current Control Method Patch Frequency of Cycle (Q days) 28 Sexually Active? Y Menses Monthly Y Sexual Problems? N LMP Definite Desired Control Method Unknown Obstetrics History GPAL:G 0 P 0 0 0 0 Immunizations Vaccine Type Date Status Note Provider Nam e and Address Organization Details Recorded Time Hib-Hep B 4 completed Sondra Funk, GERALD, LANDCARE OFFICER-C Attn: Accounting,[address] [facility], [place], [address], [facility] 05/21/2024 14:19:06 Hib-Hep B 4 completed Sondra Funk, WEIGHT REDUCING TECHNICIAN, LANDCARE OFFICER-C Attn: Accounting,[address] [facility], [place], [place], [address] [place] [address], [facility] 05/21/2024 14:19:06 Hib-Hep B 4 completed Sondra Funk, WEIGHT REDUCING TECHNICIAN, LANDCARE OFFICER-C Attn: Accounting,[address] [facility], [place], [address] [place] [address], [facility] 05/21/2024 14:19:06 pneumococcal conjugate PCV 7 4 completed Sondra Funk, WEIGHT REDUCING TECHNICIAN, LANDCARE OFFICER-C Attn: Accounting,[address] [facility], [place], [address] [place] [address], [facility] 05/21/2024 14:19:06 pneumococcal conjugate PCV 7 4 completed Sondra Funk, WEIGHT REDUCING TECHNICIAN, LANDCARE OFFICER-C Attn: Accounting,[address] [facility], [place], [address] [place] [address], [facility] 05/21/2024 14:19:06 pneumococcal conjugate PCV 7 4 completed Sondra Funk, WEIGHT REDUCING TECHNICIAN, LANDCARE OFFICER-C Attn: Accounting,[address] [facility], [place], [address] [place] [address], [facility] 05/21/2024 14:19:06 meningococcal MCV4P 5 completed Sondra Funk, WEIGHT REDUCING TECHNICIAN, LANDCARE OFFICER-C Attn: Accounting,[address] [facility], [place], [address] [place] [address], [facility] 05/21/2024 14:19:06 Influenza, live, quadrivalent, intranasal 4 completed Sondra Funk, WEIGHT REDUCING TECHNICIAN, LANDCARE OFFICER-C Attn: Accounting,[address] [facility], [place], [address] [place] [address], [facility] 05/21/2024 14:19:06 HPV9 8 completed Not Available [facility] 08/23/2019 02:49:08 Hep A, ped/adol, 2 dose 8 completed Not Available [facility] 08/23/2019 02:49:49 HPV9 9 completed Not Available [facility] 08/23/2019 02:37:36 Hep A, ped/adol, 2 dose 9 completed [facility] 02:48:33 meningococcal MCV4P 1 completed Mattie Campbell [place], [place] [facility] 08/30/2020 15:13:33 meningococcal B, OMV 1 completed Mattie [place] [facility] 08/30/2020 15:13:33 Influenza, split virus, quadrivalent, PF 1 completed Mattie [place] [facility] 08/30/2020 15:13:33 meningococcal B, OMV 1 completed Gisella Garcia [place] [facility] 10/06/2020 14:31:51 DTaP 4 completed Sondra Funk APN, LANDCARE OFFICER-C Attn: Accounting,[address] [facility], [place], [address] [place] [address], [place] [facility] 05/21/2024 14:19:06 DTaP 4 completed Sondra Funk APN, LANDCARE OFFICER-C Attn: Accounting,[address] [facility], [place], [address] [place] [address], [place] [facility] 05/21/2024 14:19:06 DTaP 4 completed Sondra Funk APN, LANDCARE OFFICER-C Attn: Accounting,[address] [facility], [place], [address] [place] [address], [place] [facility] 05/21/2024 14:19:06 DTaP 4 completed Sondra Funk APN, LANDCARE OFFICER-C Attn: Accounting,[address] [facility], [place], [address] [place] [address], [place] [facility] 05/21/2024 14:19:06 DTaP 9 completed Not Available [facility] 07/24/2022 16:53:24 Hep B, adolescent or pediatric 4 completed Not Available [facility] 07/24/2022 16:53:24 Hep B, adolescent or pediatric 4 completed Not Available [facility] 07/24/2022 16:53:24 Hep B, adolescent or pediatric 4 completed Not Available [facility] 07/24/2022 16:53:24 meningococcal MCV4, unspecified formulation 5 completed Not Available [facility] 07/24/2022 16:53:24 MMR 4 completed Sondra Funk, WEIGHT REDUCING TECHNICIAN, LANDCARE OFFICER-C Attn: Accounting,[address] [facility], [place], [address] [place] [address], [facility] 05/21/2024 14:19:06 MMR 9 completed Not Available [facility] 07/24/2022 16:53:24 IPV 4 completed Sondra Funk, WEIGHT REDUCING TECHNICIAN, LANDCARE OFFICER-C Attn: Accounting,[address] [facility], [place], [address] [place] [address], [facility] 05/21/2024 14:19:06 IPV 4 completed Sondra Funk, WEIGHT REDUCING TECHNICIAN, LANDCARE OFFICER-C Attn: Accounting,[address] [facility], [place], [address] [place] [address], [facility] 05/21/2024 14:19:06 IPV 4 completed Sondra Funk, WEIGHT REDUCING TECHNICIAN, LANDCARE OFFICER-C Attn: Accounting,[address] [facility], [place], [address] [place] [address], [facility] 05/21/2024 14:19:06 IPV 9 completed Not Available [facility] 07/24/2022 16:53:24 Tdap 5 completed Sondra Funk, WEIGHT REDUCING TECHNICIAN, LANDCARE OFFICER-C Attn: Accounting,[address] [facility], [place], [address] [place] [address], [facility] 05/21/2024 14:19:06 varicella 4 completed Sondra Funk, WEIGHT REDUCING TECHNICIAN, LANDCARE OFFICER-C Attn: Accounting,[address] [place], [address], [facility] 05/21/2024 14:19:06 varicella 9 completed Not Available [facility] 07/24/2022 16:53:24 Past Encounters Encounter ID Performer Location Encounter Start Date Encounter Closed Date Diagnosis/Indication Diagnosis SNOMED-CT Code Diagnosis ICD10 Code Diagnosis Note [id number] [facility] (Peds) [address] [facility] [place] [address] 01/02/2018 09:23:48 01/02/2018 14:18:02 Well child 405250127 Z00.825 [id number] [facility] Deshpande (Peds) [address] [place] [address] 01/28/2019 16:03:51 01/29/2019 13:45:51 Well child 509116264 Z00.129 Diet education 03587853 Z71.3 Exercises education, guidance, and counseling 188359742 Z71.82 [id number] [facility] Deshpande (Peds) [address] [place] [address] 08/21/2019 16:08:10 08/22/2019 08:58:28 Viral upper respiratory tract infection 505981330 J06.9 [id number] [facility] Deshpande (Peds) [address] [place] [address] 08/18/2020 12:18:35 08/20/2020 08:24:11 Acne 21990411 L70.9 [id number] [facility] Deshpande (Peds) [address] [place] [address] 08/30/2020 14:22:51 09/01/2020 07:50:53 Well child 018886008 Z00.129 Diet education 53281935 Z71.3 Exercises education, guidance, and counseling 009580235 Z71.82 [id number] MOE Cesar [facility] (Peds) [address] [place] [address] 10/06/2020 14:22:12 10/07/2020 07:52:46 Immunization due 094536988 Z28.3 [id number] [facility] Deshpande (Peds) [address] [place] [address] 12/13/2020 11:34:42 12/16/2020 08:38:37 Viral upper respiratory tract infection 594437544 J06.9 Offered COVID testing at [facility] and MARCELLE wants to COVID test locally at an urgent care. Told MARCELLE that she needs to bring the results here to the clinic so I can verify and to clear her to return to school. MARCELLE expressed understand ing. [id number] Shanta Stokes, [place]-Ever [place] [address] [facility] [address] [place] [address] 12/29/2020 09:01:31 12/29/2020 17:36:43 Contraception care management 879993572 Z30.9 Discussed all options and pt opts for depo. Risks of hormonal control reviewed,m enstrual bleeding or no bleeding, weight changes, breast tenderness and mood changes. Risks of bone loss with Depo Provera also reviewed. All questions answered. Pt understand s & accepts risks. Instructio ns/warning signs given. Safe sex counseling done. Pt opts to start depo today and denies chance of . Depo given and pt advised to use back up method for 2 weeks Patient was instructed to follow up in 12 weeks for next injection and call office if issues occur. Venereal d isease screening 656428373 Z11.3 Discussed std screening options. Pt opts for gonorrhea, chlamydia and trich screening on urine. Pt declined additional STD screening. Pt educated on std prevention Menorrhagia 887476537 N9 2.0 Labs ordered. Pt declined exam or US at this time. Discussed management options. Pt decided on depo and aware depo can cause irregular bleeding and is not first line management . Pt notified to follow up in 3 months and call office if issues occur. Dysmenorrhea 442474966 N 94.6 Patient educated on lifestyle modificati ons and medication s for management of dysmenorrh ea. Pt decided on ibuprofen and educated on risks. Take ibuprofen 800 mg with food 3 times a day for menstrual cramps. Call office if cramps worsen or pain is not controlled with med. FOllow up in 3 months and call office if issues occur Initiation of depot contraception done [id number] 64094 Z30.004 [id number] MD Tyrnoe Cintron [address] OB [address] [facility] [address] [place], [place] [address], [place] [address] 11/14/2021 11:25:04 11/15/2021 06:50:01 Contraception care management 577111687 Z30.9 Discussed all options. Pt decided on HARRIETT. Risks of hormonal control reviewed, patient was informed of risk including but not limited to thrombosis , embolism, pulmonary embolism, stroke, disability , sexual dysfunctio n & .Risk s of hormonal control reviewed,m enstrual bleeding or no bleeding, weight changes, breast tenderness and mood changes. Patient understand s these risk are increased with smoking. Pt understand s & accepts risks. Instructio ns/warning signs given. Safe sex counseling done. Follow up in 3 months and call office if issues occur. High risk sexual behavior 462363872 Z72.51 urine collected and sent to lab. Counseled on safe sex, condom use and STD precaution s discussed screening completed per patient's request Body mass index 30+ - obesity 290548773 Z68.31 Pt educated on risks and importance of lifestyle modificati ons. Pt reports will continue to follow up with PCP. [id number] YUAN Wray 14 OB [address] [facility] [address] [place], [place] [address], [place] [address] 08/23/2022 11:35:52 08/24/2022 07:52:56 Contraception care management 714711908 Z30.9 Discussed all options. Pt decided on HARRIETT. Risks of hormonal control reviewed, patient was informed of risk including but not limited to thrombosis , embolism, pulmonary embolism, stroke, disability , sexual dysfunctio n & .Risk s of hormonal control reviewed,m enstrual bleeding or no bleeding, weight changes, breast tenderness and mood changes. Patient understand s these risk are increased with smoking. Pt understand s & accepts risks. Instructio ns/warning signs given. Safe sex counseling done. Follow up in 3 months and call office if issues occur. Positive s creening for depression on PHQ-9 (Patient Health Questionnaire 9) [id number] 03286 Z13.31 Counseled on depression management including but not limited to establishi ng good sleep hygiene routine and stress management . Pt not interested in medication at this time. Counseling referral ordered. Follow up with PCP within 1 month and call office if issues occur before then or if pt would like to start medication . Counseled on seeking help from 911 or go to ER for suicidal or homicidal thoughts. Pt verbalized understand ing. Pt declined labs at this time. [id number] MD Tyrone Cintron 14 OB [address] [facility] [address] [place] [address] 11/22/2022 14:04:03 11/23/2022 07:55:31 Contraception care management 682952376 Z30.9 High risk sexual behavior 563856423 Z72.51 Vaginal irritation 96568 6004 N89.8 [id number] MD Tyrone Cintron 14 OB [address] [facility] [address] [place], [place] [address], [place] [address] 01/29/2024 11:45:36 01/30/2024 16:05:54 Candidiasis of vagina 95633959 B37.31 At [facility] risk of urinary tract infection 716656040 Z91.89 --Pt informed that she does not have a UTI Contracept ion care management 110076187 Z30.9 Dysmenorrhea 447604923 N 94.6 Overweight 514916200 E66 .3 Depression screening 171 835514 Z13.31 --PHQ9=6 [id number] Sondra Funk APN, LANDCARE OFFICER-C [facility] (Adult Med) [address] [place] [address] 05/21/2024 13:42:20 06/07/2024 11:28:06 Adult health examination 670307716 Z00.01 Encouraged routine COOPERATIVE MANAGER, vision, dental exams, well balanced diet. 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 dwp phq and samuel scores, will refer to Health Concerns Section Related Observation LastModified by Organization Detai ls LastModified Time None Recorded Concern Status LastModified by Organization Details LastModified Time None Recorded Advance Directives Directive N: Payers Encounter Date Sequence Insurance Name Policy Number Policy Diego Covered Member ID Diego Member ID Guarantor Name 11/14/2021 1 *SELF PAY* Wa jessace Eagle 08/23/2022 1 [employer] [place] ON [place] AFTER 2020 (MEDICAID REPLACEMENT - HMO) Abimbola Knapp [id number] Watt Eagle 11/22/2022 1 [employer] [place] REPLAC[place] - HMO) Abimbola Knapp [id number] Watt Eagle 11/22/2022 1 *SELF PAY* Wa llace Eagle 01/29/2024 1 [employer] [place]ID REPLAC[place] - HMO) Abimbola Knapp [id number] Watt Eagle 05/21/2024 1 [employer] [place] REPLAC[place] - [place]MO) Abimbola Knapp [id number] Watt Eagle Notes Date Note Type Note Provider Name and Address Organization Details Recorded Time 11/14/2021 text/html Pt is here becau se she wants to start pill for contraception. Pt denies being sexually active in last 2 months. Pt wanting std screening. pt denies known exposure to std. Pt denies any complaints. Syd Shankar MD Attn: [address] [place], [address], [place] 11/21/2021 14:05:57 08/23/2022 text/html Pt is here becau se she wants to restart pill for contraception. Pt currently on menses. PHQ score is 8. Pt reports has been feeling down lately. Pt denies any stressors. Pt interested in counseling referral. Pt denies SI or HI. Pt reports good support system. Pt denies any complaints. YUAN Wray Attn: [address] [place], [address], [place] 08/23/2022 14:28:30 11/22/2022 text/html Patient presents with the complaint of vaginal itching. She also requests STD testing because a former partner states that he was diagnosed with a STD, she is unsure of what diagnosis. The patient states that she is still having heavy periods while taking her current OCPS and would like to change to to a different pill to decrease her period flow. Syd Shankar MD Attn: [address] [place], [address], [facility] - [facility] 11/22/2022 14:46:55 01/29/2024 text/html Patient presents with mutiple complaints1. She would like to discuss contraceptive options2. The patient admits to vaginal itching and has had a yeast infection in the past. She states that the symptoms feel the same.3. The patient states that her urine smells like iron and is concerned that she may have a UTI. She denies pain with urination and denies increased urinary frequency.4. The patient admits to painful periods. She has used midol and heating pads in the past with minimal improvement. Syd Shankar MD Attn: [address] [place], [address], [facility] - [place] 01/29/2024 15:38:22 05/21/2024 text/html pt hasn't had a pcp since peds, no regular meds, c/o on and off acne break outs on face c/o facial acne,- not using anything right now as everything seems to break it out, cetaphil cerave, curology, plain dove soapbetter in summer, worse in winter time Sondra Funk APN, [employer]-C Attn: [address] [place], [address], [facility] [place] 05/23/2024 10:56:29 OBGyn Episode No OBEpisode recorded.
--- OUTSIDE RECORDS SUMMARY | 2024-11-25 14:42 | XMS_ITS | Referral Summary ---
Author Organization [address] Address [address] [place] [id number] Care Team Providers Care Character Actor Name Role Phone Miscellaneous, Not In File Unavailable Unava ilable No, Physician Primary Care Provider [phone] Allergies No known active allergies Medications ibuprofen 200 mg tab/cap Take 400 mg by mouth every 4 (four) hours as needed for pain Active naproxen (NAPROSYN) 500 mg tablet Take 1 tablet (500 mg total) by mouth 2 (two) times a day with meals P.r.n. pain. Collaborating physician vEaristo Munoz MD 20 tablet 3 Active cyclobenzaprine [...] often do you attend chur ch or buddhism services? More than 4 times per year 07/20/2022 Do you belong to any clubs o r organizations such as worship groups, unions, fraternal or athletic groups, or [...] on file Legal Sex Female 7:29 PM LOAN REVIEW MANAGER Gender Identity Not on file Sexual Orientation [...] 02/21/2024 10:15 AM CDT Plan of Treatment Not on file Procedures Procedure Name Priority Date/Time Associated Diagnosis Comments HEPATITIS PANEL, ACUTE STAT 07/19/2022 5:39 AM LOAN REVIEW MANAGER from Last 3 Months or Most Recently Relevant to Health Maintenance Results * Hepatitis panel, acute (07/19/2022 5:39 AM LOAN REVIEW MANAGER) Hep A IgM Nonreactive Nonreactive [facility] Comment: [...] last revised on 2019. HepBsAg Nonreactive Nonreactive [facility] Blood 07/19/2022 5:39 AM LOAN REVIEW MANAGER 07/19/2022 5:39 AM LOAN REVIEW MANAGER Evaristo GARCIA [facility] MICROBIOLOGY - GENERAL ORDERABLES Final Result [facility] [id number] Department [place] [address] from Last 3 Months or Most Recently Relevant to Health Maintenance Insurance [facility] IDPA [facility] [employer] [place] Advance Directives For more information, please contact: [phone] * Full Code (Latest Code Status on File) Date Activated Date Inactivated Comments 07/19/2022 11:54 AM 07/24/2022 7:57 PM Care Teams Character Actor Relationship Specialty Start Date End Date No, Physician PCP - General 04/09/23 Miscellaneous, Not In File 07/24/22
--- OUTSIDE RECORDS SUMMARY | 2024-11-25 14:42 | XMS_ITS | Clinical Summary ---
Author Organization [facility] Address [address] [place] [address] Phone Care Team Providers Care Cleaning Maid Name Role Phone Epifanio Leslie MD Primary Care Provider Allergies No known active allergies Medications HYDROcodone-joel taminophen (Grover) 5-325 MG Tablet Take 1 Tablet by mouth every 6 hours as needed for Moderate or more severe pain. 12 Tablet 1 Active Additional Information Patient not taking.Reported on 12/13/2020 albuterol 108 (90 Base) MCG/ACT Aerosol Solution take 2 Puffs by inhalation every 6 hours as needed for Cough. 6.7 g 2 Active ondansetron (ZOFRAN) 4 MG Tablet Take 1 Tablet by mouth every 8 hours as needed for Nausea - 1st line. 10 Tablet 2 Active Active Problems No known active problems Social History Tobacco Use Types Packs/Day Years Used Date Smoking Tobacco: Never Smokeless Tobacco: Never Comments No Sex and Gender Information Value Date Recorded Sex Assigned at Not on file Legal Sex Female 5:16 PM LEARNING COORDINATOR Gender Identity Not on file Sexual Orientation Not on file Last Filed Vital Signs Vital Sign Reading Time Taken Comments Blood Pressure 124/74 07/13/2022 2:00 PM LEARNING COORDINATOR Pulse 85 07/13/2022 2:00 PM LEARNING COORDINATOR Temperature 36.9 C (98.4 F) 07/13/2022 2:00 PM LEARNING COORDINATOR Respiratory Rate 16 07/13/2022 2:00 PM LEARNING COORDINATOR Oxygen Saturation 99% 07/13/2022 2:00 PM LEARNING COORDINATOR Inhaled Oxygen Concentration - - Weight 70.3 kg (155 lb) 07/13/2022 2:00 PM LEARNING COORDINATOR Height 157.5 cm (5' 2 ) 07/13/2022 2:00 PM LEARNING COORDINATOR Body Mass Index 28.35 07/13/2022 2:00 PM LEARNING COORDINATOR Plan of Treatment Health Maintenance Due Date Last Done Comments Hepatitis C Virus (HCV) Screening 2003 Influenza Immunization (#1) 2024 08/30/2020, 0 04/24/2014 SARS-COV-2 Immunization ( season) 2024 Respiratory Syncytial Virus (RSV) Immunization (Adult) (1 - 1-dose 75+ series) 2078 Hepatitis B Immunization Completed 004, 2003, 2003 Pneumococcal Immunization Combined Aged Out 07/14/2004, 2003, 2003 No longer eligible based on patient's age to complete this topic Measles Mumps Rubella (MMR) Immunization Discontinued 12/04/2008, 07/14/2004 Polio (IPV) Immunization Discontinued 009, 01/14/2004, 2003, Additional history exists Varicella Immunization Discontinued 12/04/2008, 2003 DTaP/Tdap/Td Immunization Discontinued 2014, 12/04/2008, 07/14/2004, Additional history exists TdaP Immunization Completed 04/27/2015 Hepatitis A Immunization Discontinued 01/28/2019, 12/06 Human Papillomavirus (HPV) Immunization Completed 01/28/2019, 01/02/2018 Meningococcal Immunization (ACWY) Completed 08/30/2020, 04/27/2015 Meningococcal B Immunization Completed 10/06/2020, 08/30/2020 Rotavirus Immunization Aged Out No lo nger eligible based on patient's age to complete this topic Insurance MEDICAID [facility] Care Teams Cleaning Maid Relationship Specialty Start Date End Date Epifanio Leslie MD [address] [place] [address] PCP - General Pediatrics 12/05/20
[2024-11-25 20:41] LABS: Trichomonas Vag PCR NOT DETECTED (NOT DETECTE)
[2024-11-25 21:05] LABS: Chlamydia trachomatis NOT DETECTED (NOT DETECTE); Neisseria gonorrhoeae PCR NOT DETECTED (NOT DETECTE)
== END 2024-11-25 13:38 | disposition home or self-care (01) ==
PROVIDERS: Emergency Provider Nurse Practitioner Family
DX: N76.0 Acute vaginitis (principal); Z11.3 Encounter for screening for infections with a predominantly sexual mode of transmission
CPT/HCPCS: 87491; 87591; 87661; 99213; G0463